=== PATIENT | male | born 2000 | race Caucasian/White ===

== ENCOUNTER 2019-08-09 15:58 | Emergency (ER) | payer BC, OTHER ==
[~2019-08-09] VITALS: Ht 182.9 cm; Wt 64.4 kg
--- NOTE | 2019-08-09 16:03 | NUR ---
Dr Muñoz at the bedside for MSE.
[2019-08-09] MEDS ORDERED: LORAZEPAM 2 MG/1 ML VIAL IV ONE (16:15)
[2019-08-09] MEDS ORDERED: IV NORMAL SALINE 1000 ML BAG IV ONE (16:15)
[2019-08-09] MEDS ORDERED: LORAZEPAM 2 MG/1 ML VIAL ONE (16:21)
[2019-08-09 16:22] LABS: BASOPHILS % (AUTO) 0.3 % (0.0-2.0); EOSINOPHILS % (AUTO) 0.5 % (0.0-7.0); HEMATOCRIT 43.9 % (36.7-47.1); HEMOGLOBIN 14.5 g/dL (12.5-16.3); LYMPHOCYTES # (AUTO) 1.7 K/uL (20.0-40.0); LYMPHOCYTES % (AUTO) 21.1 % (20.5-74.5); MEAN CORPUSCULAR HEMOGLOBIN 29.6 uug (23.8-33.4); MEAN CORPUSCULAR HGB CONC 33 g/dL (32.5-36.3); MEAN CORPUSCULAR VOLUME 89.2 fL (73.0-96.2); MONOCYTES # (AUTO) 0.4 K/uL (2.0-10.0); MONOCYTES % (AUTO) 4.5 % (0-11); NEUTROPHILS # (AUTO) 5.9 K/uL (1.8-8.9); NEUTROPHILS % (AUTO) 73.6 % (31.5-64.5); PLATELET COUNT (AUTO) 192 K/uL (152-348); RED BLOOD CELL COUNT(AUTO) 4.92 MIL/uL (4.06-5.63); WHITE BLOOD COUNT (AUTO) 8.1 K/uL (3.6-10.2)
[2019-08-09 16:30] LABS: CREATININE 1.6 mg/dL (0.6-1.3)
--- NOTE | 2019-08-09 16:50 | NUR ---
Patient is resting comfortably in bed with eyes closed, NAD noted. No seizure activity noted since arrival.
--- NOTE | 2019-08-09 17:01 | NUR ---
Pt is awake A/O x4, parents awaiting for pt in the waiting room. MD spoke to pt and pt's parents.
[2019-08-09 17:07] VITALS: BP 126/77
--- NOTE | 2019-08-09 17:07 | NUR ---
IV removed. Catheter intact and site benign. Pressure and 4x4 gauze applied to site. No bleeding noted.
--- NOTE | 2019-08-09 17:10 | NUR ---
Patient discharged to home in stable conditon. Written and verbal after care instructions given. Patient verbalizes understanding of instructions. Pt left ER w/ steady gait accompained by parents.
== END 2019-08-09 17:11 | disposition home or self-care (01) ==
LOC: ER 16:02
DX: R56.9 Unspecified convulsions (principal)
CPT/HCPCS: 36415; 80048; 85025; 99283; J2060; A4663

== ENCOUNTER 2020-10-31 16:12 | Emergency (ER) | payer OTHER ==
[~2020-10-31] VITALS: Ht 180.3 cm; Wt 65.8 kg
[2020-10-31] MEDS: IV NORMAL SALINE 1000 ML BAG IV ONE ×2 (16:23→16:48)
[2020-10-31 17:22] VITALS: BP 131/87
--- NOTE | 2020-10-31 17:22 | NUR ---
Patient discharged to home in stable condition. Written and verbal after care instructions given. Patient verbalizes understanding of instructions. Stressed follow up or return to ER for worsening s/s.pt says feels better, walks in steady gait. pt accompanied by parents.
== END 2020-10-31 17:22 | disposition home or self-care (01) ==
LOC: ER 16:13
DX: E86.0 Dehydration (principal); F41.9 Anxiety disorder, unspecified; F13.21 Sedative, hypnotic or anxiolytic dependence, in remission; F32.9 Major depressive disorder, single episode, unspecified
CPT/HCPCS: A4663; J7030